=== PATIENT | female | born 1995 | race African-American/Black ===

== ENCOUNTER 2025-01-25 12:32 | Emergency (ER) | payer MEDICAID ==
[~2025-01-25] VITALS: Ht 167.6 cm; Wt 65.0 kg
[2025-01-25 12:38] VITALS: O2SAT 99
[2025-01-25 12:40] VITALS: BP 109/69; PULSE 50; RESP 16; TEMP 37.1; O2SAT 100
== END 2025-01-25 16:29 | disposition left against medical advice (07) ==
LOC: ER 12:32
DX: R51.9 Headache, unspecified (principal); Z53.21 Procedure and treatment not carried out due to patient leaving prior to being seen by health care provider